=== PATIENT | male | born 1945 | race Caucasian/White ===

== ENCOUNTER → 2023-06-10 15:09 | Outpatient (BNVA) | payer MEDICARE, BC, SELFPAY | PROVIDERS: Family Provider Nurse Practitioner; PCP Nurse Practitioner; Visit Provider Dermatology | DX: D48.5 Neoplasm of uncertain behavior of skin (principal); L57.0 Actinic keratosis; D36.14 Benign neoplasm of peripheral nerves and autonomic nervous system of thorax; D17.21 Benign lipomatous neoplasm of skin and subcutaneous tissue of right arm; L82.1 Other seborrheic keratosis; L81.4 Other melanin hyperpigmentation; L57.8 Other skin changes due to chronic exposure to nonionizing radiation | CPT/HCPCS: 11102; 17000; 69100; 99203 ==

== ENCOUNTER 2023-06-24 18:58 | Emergency (ER) | payer MEDICARE, BC, SELFPAY ==
--- NOTE | 2023-06-24 18:58 | XRR_ITS ---
PROCEDURE INFORMATION: Exam: XR Left Hand Exam date and time: 06/24/2023 7:06 PM Age: 77 years old Clinical indication: Injury or trauma; Other: Hurt lt thumb; Blunt trauma (contusions or hematomas); Finger; Left TECHNIQUE: Imaging protocol: Radiologic exam of the left hand. Views: 3 or more views. COMPARISON: No relevant prior studies available. FINDINGS: Bones/joints: Severe joint space narrowing at the 1st and 2nd metacarpophalangeal joints with periarticular erosions at the 1st and 2nd metacarpophalangeal joints and at the DIP joints of the 3rd digit which can be seen in the setting inflammatory arthritis such as rheumatoid arthritis. Nondisplaced intra-articular fracture through the base of the distal 1st phalanx. Soft tissues: Normal. XR/XR hand LT min 3V* [id number] IMPRESSION: 1. Nondisplaced intra-articular fracture through the base of the distal 1st phalanx. 2. Severe joint space narrowing at the 1st and 2nd metacarpophalangeal joints with periarticular erosions at the 1st and 2nd metacarpophalangeal joints and at the DIP joints of the 3rd digit which can be seen in the setting inflammatory arthritis such as rheumatoid arthritis.
[2023-06-24 19:07] VITALS: BP 181/113; PULSE 95; RESP 16; TEMP 36.7; O2SAT 98; BMI 24.4
--- NOTE | 2023-06-24 19:16 | PC.NURSE ---
upon triage pt denies anticoagulant usage.
--- NOTE | 2023-06-24 20:15 | ED_ITS ---
HPI - Wound/Laceration General: Chief Complaint: Wound/Laceration Stated Complaint: Left Hand Thumb Injury Time Seen by Provider: 06/24/23 19:32 History of Present Illness: Patient is a 77-year-old male with no significant past medical history who presents to the emergency department for evaluation of a left thumb laceration. Patient reports that he was cocking a crossbow when the bowstring slipped and lacerated the distal end of his left thumb. Admits to a mild amount of bleeding at onset of injury that has since been controlled compression. He denies any numbness or tingling to the ipsilateral finger. Admits to full range of motion in the left hand and fingers. Patient states that he is not up-to-date on his tetanus prophylaxis. No other complaints at this time. Associated symptoms: Denies chills, fever(s), nausea or vomiting Review of Systems General: Reports: 10 or more systems reviewed and unremarkable except in HPI and below Const: Denies: fever(s) or chills Eyes: Denies: change in vision or blurry vision Card: Denies: chest pain or palpitations Resp: Denies: dyspnea GI: Denies: abdominal pain, nausea, vomiting, diarrhea or constipation Musc: Reports: other (Admits to laceration to the distal end left thumb.) Skin/Breast: Denies: rash Physical Exam Const: COMMON NORMALS: no acute distress, average body habitus, patient oriented x3 and alert HENMT: COMMON NORMALS: normocephalic and atraumatic HEAD & SCALP: normocephalic and atraumatic Eye: COMMON NORMALS: Equal, round and reactive pupils present, EOMs intact bilaterally, conjunctivae normal and no scleral icterus CONJUNCTIVA: Yes conjunctivae normal PUPIL: Yes Equal, round and reactive pupils present Neck/C-Spine: COMMON NORMALS: full ROM Chest: COMMONS NORMALS: normal inspection of the chest Resp: COMMON NORMALS: normal respiratory effort, No retractions and No use of accessory muscles Cardio: COMMON NORMALS: regular rate RATE: regular rate OTHER: 2+ radial pulse left wrist. Extremity: OTHER: Approximately 1 cm laceration is noted to the distal end of the left thumb. Bleeding currently controlled in the emergency department. The laceration is shallow and the entirety the wound can be visualized. Patient is full passive and active range of motion in the left thumb. Moving all other bilateral upper and lower extremities without weakness or deficit. Neuro: COMMON NORMALS: patient oriented x3 SENSORIUM/ORIENTATION: Yes alert OTHER: Sensation intact in the entirety of the left hand and fingers. Procedures Laceration Laceration 1: Site: other (Left thumb) Side (If applicable): left Size (cm): 1 Description: linear Depth: simple, single layer Local Anesthetic: lidocaine 1% Amount of anesthesia used (mL): 3 Pre-repair: wound explored, irrigated extensively, deep structures intact and wound margins revised Skin layer closed with: other (Prolene) Size (cm): 4-0 Number of sutures: 2 Technique: simple, interrupted Course Vital Signs: Vital signs: Vital Signs Temperature 98.0 F 06/24/23 19:07 Pulse Rate 95 06/24/23 19:07 Respiratory Rate 16 06/24/23 19:07 Blood Pressure 181/113 06/24/23 19:07 Pulse Oximetry 98 06/24/23 19:07 MDM - Wound/Laceration Medical Decision Making Patient is a 77-year-old male with no significant past medical history who presents to the emergency department for evaluation of a left thumb laceration. On physical examination patient is nontoxic and in no acute distress. Vital signs remained stable throughout the ED course. Patient is neurovascularly intact. X-ray of the left hand showed a nondisplaced intra-articular fracture through the base of the distal first phalanx. I consulted Dr. Anderson, the orthopedic surgeon on-call, who recommended thorough irrigation, closure, thumb spica splint, initiation of Keflex, and outpatient follow-up in her office. She did not feel the patient required admission or further evaluation at this time. Wound was thoroughly irrigated and repaired as instructed. Thumb spica splint placed in the ED. Patient was neurovascular intact both before and after splint placement. A prescription of Keflex was sent to patient's pharmacy be picked up. First dose of antibiotic given in the emergency department. Tetanus updated in the emergency department. Referral was placed to the orthopedic surgeon here in [place]. Number provided discharge paperwork, call tomorrow to schedule an appointment for further management/evaluation. Tylenol and ibuprofen as needed for pain. A prescription of Keflex was sent to your pharmacy to be picked up. Take medication as prescribed. See handout over generalized instructions. Call your primary care provider tomorrow with an update of your symptoms. Return to the emergency room if any rapid or worsening symptoms to include but not limited to redness to the affected area, red streaking, purulent drainage, fever, chills, nausea, vomiting, or as needed. Patient stated understanding of all discharge instructions was agreeable to plan of care. Differential diagnosis includes was not limited to open fracture, laceration, abrasion, contusion, dislocation Lab Data Radiology Impressions Hand X-Ray 06/24/23 18:58 IMPRESSION: 1. Nondisplaced intra-articular fracture through the base of the distal 1st phalanx. 2. Severe joint space narrowing at the 1st and 2nd metacarpophalangeal joints with periarticular erosions at the 1st and 2nd metacarpophalangeal joints and at the DIP joints of the 3rd digit which can be seen in the setting inflammatory arthritis such as rheumatoid arthritis. All radiology interpretation(s) finalized by discharge Discharge Plan Discharge Patient Disposition: Home Clinical Impression: Open fracture of left thumb Condition: Stable Prescriptions: New cephalexin 500 mg capsule 500 mg PO Q6H 7 Days Qty: 28 0RF Discharge Orders: Discharge ED (Routine); Ordered 06/24/23 Ordered By: Garth Louise Referrals: Rosio Anderson MD [Physician] - Gunnar Gonzalez [Primary Care Provider] - Patient Instructions: Finger Laceration (ED), Thumb Fracture (ED) Activity Restrictions/Additional Instructions: A splint was provided in the emergency department. Remain in this and nonweightbearing until evaluated by the orthopedic surgeon. Referral was placed to the orthopedic surgeon here in [place]. Number provided discharge paperwork, call tomorrow to schedule an appointment for further management/evaluation. Tylenol and ibuprofen as needed for pain. A prescription of Keflex was sent to your pharmacy to be picked up. Take medication as prescribed. See handout over generalized instructions. Call your primary care provider tomorrow with an update of your symptoms. Return to the emergency room if any rapid or worsening symptoms to include but not limited to redness to the affected area, red streaking, purulent drainage, fever, chills, nausea, vomiting, or as needed. Coding Level of Care Code ED [employer] Super[employer] for Chelita Hayes
[2023-06-24] MEDS: lidocaine 1% INJ 10 mL (per mL) 5 ML INJECTION (21:13)
[2023-06-24] MEDS: tetanus-dipt-pertussis 0.5 mL SDV IM (21:16)
[2023-06-24] MEDS: neomycin-poly-bacitracin oint 28 gm 1 APPLIC TOPICAL (21:18)
[2023-06-24] MEDS: cephALEXin 500 mg Capsule PO (21:18)
--- NOTE | 2023-06-25 09:09 | DCPLANNER ---
Message sent to follow up with patient for an open fx of left thumb.
== END 2023-06-24 21:33 | disposition home or self-care (01) ==
PROVIDERS: Emergency Provider Physician Assistant; PCP Family Medicine
DX: S62.525B Nondisplaced fracture of distal phalanx of left thumb, initial encounter for open fracture (principal); W21.89XA Striking against or struck by other sports equipment, initial encounter; Z23 Encounter for immunization
CPT/HCPCS: 12001; 73130; 90471; 90715; 99284

== ENCOUNTER → 2023-07-04 15:22 | Outpatient (BNVA) | payer MEDICARE, BC, SELFPAY | PROVIDERS: PCP Family Medicine; Referring Provider Physician Assistant; Visit Provider Nurse Practitioner | DX: S61.112A Laceration without foreign body of left thumb with damage to nail, initial encounter; S62.525A Nondisplaced fracture of distal phalanx of left thumb, initial encounter for closed fracture; W21.89XA Striking against or struck by other sports equipment, initial encounter | CPT/HCPCS: 26725; 73130; 99204 ==

== ENCOUNTER → 2023-07-22 07:47 | Outpatient (BNVA) | payer MEDICARE, BC, SELFPAY | PROVIDERS: PCP Family Medicine; Visit Provider Dermatology | DX: C44.311 Basal cell carcinoma of skin of nose (principal) | CPT/HCPCS: 13152; 17311 ==

== ENCOUNTER → 2023-07-25 11:23 | Outpatient (BNVA) | payer MEDICARE, BC, SELFPAY | PROVIDERS: PCP Family Medicine; Visit Provider Nurse Practitioner | DX: S62.525D Nondisplaced fracture of distal phalanx of left thumb, subsequent encounter for fracture with routine healing (principal); S61.112D Laceration without foreign body of left thumb with damage to nail, subsequent encounter; W21.89XD Striking against or struck by other sports equipment, subsequent encounter | CPT/HCPCS: 73130; 99024 ==

== ENCOUNTER → 2023-07-30 08:50 | Outpatient (BNVA) | payer MEDICARE, BC, SELFPAY | PROVIDERS: PCP Family Medicine; Visit Provider Dermatology | DX: Z48.02 Encounter for removal of sutures (principal) | CPT/HCPCS: 99212 ==

== ENCOUNTER → 2023-11-28 13:37 | Outpatient (BNVA) | payer MEDICARE, BC, SELFPAY | PROVIDERS: PCP Family Medicine; Visit Provider Dermatology | DX: L73.8 Other specified follicular disorders (principal); D22.5 Melanocytic nevi of trunk; L81.4 Other melanin hyperpigmentation; Z85.828 Personal history of other malignant neoplasm of skin | CPT/HCPCS: 99213 ==